=== PATIENT | male | born 1975 | race African-American/Black ===

== ENCOUNTER 2016-09-12 15:13 | Emergency (ER) | payer MEDICAID, OTHER ==
[~2016-09-12] VITALS: Ht 180.3 cm; Wt 63.0 kg
[2016-09-12] MEDS ORDERED: TRAMADOL 50MG TABLET PO ONE (17:45)
[2016-09-12 18:50] VITALS: BP 115/60
== END 2016-09-12 20:20 | disposition home or self-care (01) ==
LOC: ER 16:33
DX: M79.605 Pain in left leg (principal); M79.604 Pain in right leg; M54.2 Cervicalgia; R51 Headache; M25.522 Pain in left elbow; F17.200 Nicotine dependence, unspecified, uncomplicated
CPT/HCPCS: 72040; 72170; 73080; 73552; 99284

== ENCOUNTER 2017-01-16 11:53 | Emergency (ER) | payer MEDICAID ==
[~2017-01-16] VITALS: Ht 177.8 cm; Wt 56.0 kg
[2017-01-16] MEDS ORDERED: KETOROLAC 60MG/2ML VIAL IM ONE (16:30)
[2017-01-16 16:50] VITALS: BP 126/84
== END 2017-01-16 17:13 | disposition home or self-care (01) ==
LOC: ER 11:53
DX: R51 Headache (principal); I10 Essential (primary) hypertension; F17.200 Nicotine dependence, unspecified, uncomplicated
CPT/HCPCS: 70450; 96372; 99284; J1885

== ENCOUNTER 2017-03-18 18:26 | Emergency (ER) | payer MEDICAID ==
[~2017-03-18] VITALS: Ht 177.8 cm; Wt 69.0 kg
[2017-03-19] MEDS ORDERED: KETOROLAC 30MG/ML VIAL IM ONE (03:30)
[2017-03-19] MEDS ORDERED: ONDANSETRON HCL 4MG TABLET PO ONE (03:30)
[2017-03-19 06:41] VITALS: BP 108/78
== END 2017-03-19 07:02 | disposition home or self-care (01) ==
LOC: ER 19:12 → CANRESERV 03-19 19:39 → ENRESERV 03-19 19:39 → CANBEDREQ 03-20 08:45
DX: S43.402A Unspecified sprain of left shoulder joint, initial encounter (principal); W01.0XXA Fall on same level from slipping, tripping and stumbling without subsequent striking against object, initial encounter; Y93.E5 Activity, floor mopping and cleaning; Y92.090 Kitchen in other non-institutional residence as the place of occurrence of the external cause; F17.210 Nicotine dependence, cigarettes, uncomplicated; F10.20 Alcohol dependence, uncomplicated
CPT/HCPCS: 73030; 96372; 99284; J1885; Q0162; Z7610

== ENCOUNTER 2017-04-29 12:18 | Emergency (ER) | payer MEDICAID ==
[~2017-04-29] VITALS: Ht 180.3 cm; Wt 64.0 kg
[2017-04-29] MEDS ORDERED: IBUP-2030 PO (12:37)
[2017-04-29 13:15] VITALS: BP 120/78
[2017-04-29] MEDS ORDERED: IBUPROFEN 400MG TABLET PO ONE (13:15)
[2017-04-29] MEDS ORDERED: ACETAMINOPHEN 325MG TABLET PO ONE (13:15)
== END 2017-04-29 14:25 | disposition home or self-care (01) ==
LOC: ER 12:18
DX: S93.402A Sprain of unspecified ligament of left ankle, initial encounter (principal); S93.602A Unspecified sprain of left foot, initial encounter; Y93.01 Activity, walking, marching and hiking; Y93.89 Activity, other specified; Y92.89 Other specified places as the place of occurrence of the external cause; F17.210 Nicotine dependence, cigarettes, uncomplicated
CPT/HCPCS: 73610; 73630; 99284

== ENCOUNTER 2018-07-02 16:14 | Emergency (ER) | payer MEDICAID ==
[~2018-07-02] VITALS: Ht 177.8 cm; Wt 60.0 kg
[~2018-07-02 16:14] MED LIST: IBUP-2030 PO
[2018-07-02] MEDS ORDERED: IBUPROFEN 600MG TABLET PO ONE (18:45)
[2018-07-02 21:23] VITALS: BP 112/82
== END 2018-07-02 21:32 | disposition home or self-care (01) ==
LOC: ER 16:14
DX: T51.0X1A Toxic effect of ethanol, accidental (unintentional), initial encounter (principal); Y90.8 Blood alcohol level of 240 mg/100 ml or more; S90.121A Contusion of right lesser toe(s) without damage to nail, initial encounter; X58.XXXA Exposure to other specified factors, initial encounter; Y93.89 Activity, other specified; Y92.89 Other specified places as the place of occurrence of the external cause; F17.210 Nicotine dependence, cigarettes, uncomplicated; E11.9 Type 2 diabetes mellitus without complications; Z79.4 Long term (current) use of insulin; Z91.14 Patient's other noncompliance with medication regimen
CPT/HCPCS: 36415; 80320; 82962; 99283; G0480

== ENCOUNTER 2018-07-03 12:35 | Emergency (ER) | payer MEDICAID ==
[~2018-07-03] VITALS: Ht 177.8 cm; Wt 61.3 kg
[2018-07-03] MEDS ORDERED: KETOROLAC 60MG/2ML VIAL IM STA (17:19)
[2018-07-03] MEDS ORDERED: KETOROLAC 60MG/2ML VIAL IM SCH (17:30)
[2018-07-03 18:35] VITALS: BP 122/67
== END 2018-07-03 18:35 | disposition home or self-care (01) ==
LOC: ER 12:35
DX: M77.42 Metatarsalgia, left foot (principal); M77.41 Metatarsalgia, right foot; F17.210 Nicotine dependence, cigarettes, uncomplicated
CPT/HCPCS: 73630; 96372; 99283; J1885

== ENCOUNTER 2018-09-07 04:32 | Emergency (ER) | payer MEDICAID ==
[~2018-09-07] VITALS: Ht 177.8 cm; Wt 68.0 kg
[2018-09-07] MEDS ORDERED: HYDROCODONE/ACETAMINOPHEN 5/325MG TABLET PO ONE (05:15)
[2018-09-07 07:40] VITALS: BP 88/56
== END 2018-09-07 09:30 | disposition home or self-care (01) ==
LOC: ER 04:32
DX: S02.2XXA Fracture of nasal bones, initial encounter for closed fracture (principal); Y08.89XA Assault by other specified means, initial encounter; Y93.89 Activity, other specified; Y92.89 Other specified places as the place of occurrence of the external cause; Y99.8 Other external cause status; I10 Essential (primary) hypertension
CPT/HCPCS: 70450; 70486; 71111; 99284; Z7610

== ENCOUNTER 2019-05-21 16:08 | Emergency (ER) | payer MEDICAID ==
[~2019-05-21] VITALS: Ht 177.8 cm; Wt 73.0 kg
[2019-05-21] MEDS ORDERED: FURO-151 PO (16:19)
[2019-05-21] MEDS ORDERED: IBUPROFEN 600MG TABLET PO ONE (20:45)
[2019-05-21 21:35] VITALS: BP 116/81
== END 2019-05-21 22:28 | disposition home or self-care (01) ==
LOC: ER 16:08
DX: M25.572 Pain in left ankle and joints of left foot (principal); M25.571 Pain in right ankle and joints of right foot; L97.829 Non-pressure chronic ulcer of other part of left lower leg with unspecified severity; R03.0 Elevated blood-pressure reading, without diagnosis of hypertension; G40.909 Epilepsy, unspecified, not intractable, without status epilepticus
CPT/HCPCS: 99283

== ENCOUNTER 2020-05-16 12:20 | Emergency (ER) | payer MEDICAID ==
[~2020-05-16] VITALS: Ht 177.8 cm; Wt 59.0 kg
[~2020-05-16 12:20] MED LIST changes: +FURO-151 PO
[2020-05-16 12:22] VITALS: BP 140/71
[2020-05-16] MEDS ORDERED: FLUORESCEIN SODIUM 1MG/STRIP EACHEYE ONE (12:45)
[2020-05-16] MEDS ORDERED: TETRACAINE 0.5% OPHTH DROPS 4ML EACHEYE ONE (12:45)
[2020-05-16] MEDS ORDERED: DEXT15DR5 LEFTEYE (13:30)
== END 2020-05-16 13:37 | disposition home or self-care (01) ==
LOC: ER 12:30
DX: H11.32 Conjunctival hemorrhage, left eye (principal); W22.8XXA Striking against or struck by other objects, initial encounter; R03.0 Elevated blood-pressure reading, without diagnosis of hypertension; Y93.89 Activity, other specified; Y92.89 Other specified places as the place of occurrence of the external cause; G40.909 Epilepsy, unspecified, not intractable, without status epilepticus; Z79.899 Other long term (current) drug therapy
CPT/HCPCS: 99283

== ENCOUNTER 2021-09-18 09:15 | Emergency (ER) | payer MEDICAID ==
[~2021-09-18] VITALS: Ht 177.8 cm; Wt 70.0 kg
[~2021-09-18 09:15] MED LIST changes: +DEXT15DR5 LEFTEYE
[2021-09-18 09:51] LABS: BASOPHILS % 0.7 % (0.0-2.0); EOSINOPHILS % 0.9 % (0.0-5.0); HEMATOCRIT. 37.8 % (42.0-52.0); HEMOGLOBIN. 12.6 g/dL (14.0-18.0); LYMPHOCYTES % 19.8 % (20.0-50.0); MEAN CORPUSCULAR HEMOGLOBIN 32.6 pg (28.0-32.0); MEAN CORPUSCULAR VOLUME 97.6 fL (80.0-94.0); MEAN PLATELET VOLUME 6.2 fl (7.4-10.4); MONOCYTES % 7.6 % (2.0-8.0); PLATELET 193 x1000/uL (130-400); RED BLOOD CELL COUNT 3.88 mill/uL (4.7-6.1); RED CELL DISTRIBUTION WIDTH 14.9 % (11.6-14.6)
[2021-09-18 10:01] LABS: CHLORIDE 107 mEq/L (98-107)
[2021-09-18 10:05] VITALS: BP 113/72
[2021-09-18 10:10] LABS: ETHANOL BLOOD < 10 mg/dL
== END 2021-09-18 11:39 | disposition home or self-care (01) ==
LOC: ER 09:15
DX: G40.909 Epilepsy, unspecified, not intractable, without status epilepticus (principal)
CPT/HCPCS: 36415; 80053; 80320; 85025; 99283; G0480

== ENCOUNTER 2022-07-18 18:40 | Emergency (ER) | payer MEDICAID ==
[~2022-07-18] VITALS: Ht 180.3 cm; Wt 82.0 kg
[2022-07-18 18:43] VITALS: BP 119/77
[2022-07-18] MEDS ORDERED: LEVETIRACETAM 500MG TABLET PO ONE (19:00)
== END 2022-07-18 20:29 | disposition home or self-care (01) ==
LOC: ER 18:40
DX: R56.9 Unspecified convulsions (principal); S01.512A Laceration without foreign body of oral cavity, initial encounter; X58.XXXA Exposure to other specified factors, initial encounter; Y93.89 Activity, other specified; Y92.89 Other specified places as the place of occurrence of the external cause; Y99.8 Other external cause status
CPT/HCPCS: 82962; 99283

== ENCOUNTER 2023-05-25 08:50 | Emergency (ER) | payer MEDICAID, OTHER ==
[~2023-05-25] VITALS: Ht 177.8 cm; Wt 71.0 kg
[2023-05-25 08:52] VITALS: O2SAT 100
[2023-05-25] MEDS: LEVETIRACETAM 1000MG PREMIX 100 ML IV ONE (09:30)
[2023-05-25] MEDS: SODIUM CHLORIDE 0.9% 1,000 ML IV ONE (09:30)
[2023-05-25 10:32] LABS: BASOPHILS % 0.4 % (0.0-2.0); DIFFERENTIAL COMMENT 0; HEMOGLOBIN. 12.8 g/dL (14.0-18.0); MEAN CORPUSCULAR HEMOGLOBIN 35.5 pg (28.0-32.0); MEAN CORPUSCULAR HGB CONC 33.7 g/dL (31.0-37.0); MEAN CORPUSCULAR VOLUME 105.3 fL (80.0-94.0); MEAN PLATELET VOLUME 6.8 fl (7.4-10.4); MONOCYTES % 8.3 % (2.0-8.0); NEUTROPHILS % 73.3 % (40.0-76.0); PLATELET 153 x1000/uL (130-400); RED BLOOD CELL COUNT 3.61 mill/uL (4.7-6.1); RED CELL DISTRIBUTION WIDTH 13.7 % (11.6-14.6); WHITE BLOOD COUNT 3.5 x1000/uL (4.5-11.0)
[2023-05-25 10:50] LABS: ALANINE AMINOTRANSFERASE 26 IU/L (10-49); ALBUMIN 4.7 g/dL (3.2-4.8); ASPARTATE AMINOTRANSFERASE 47 IU/L (<34); BILIRUBIN TOTAL 1.2 mg/dL (0.1-1.0); CALCIUM 9.6 mg/dL (8.7-10.4); CARBON DIOXIDE 22 mEq/L (21-32); CHLORIDE 106 mEq/L (98-107); ETHANOL BLOOD < 10 mg/dL (<10); GLUCOSE 155 mg/dL (70-105); POTASSIUM 4.3 mEq/L (3.5-5.1); PROTEIN TOTAL 7.2 g/dL (6.0-8.3); SODIUM 142 mEq/L (136-145); UREA NITROGEN BLOOD 9 mg/dL (9-23)
[2023-05-25 11:57] LABS: CLARITY URINE CLEAR (CLEAR); COLOR URINE YELLOW (YELLOW); GLUCOSE URINE NEGATIVE (NEGATIVE); KETONES URINE NEGATIVE (NEGATIVE); LEUKOCYTE ESTERASE URINE NEGATIVE (NEGATIVE); NITRITE URINE NEGATIVE (NEGATIVE); OCCULT BLOOD URINE TRACE (NEGATIVE); PH URINE 6.5 (4.5-8.0); PROTEIN URINE 1+ (NEGATIVE); SPECIFIC GRAVITY URINE 1.015 (1.005-1.030); UROBILINOGEN URINE 0.2 E.U./dL (0.2-1.0)
[2023-05-25 12:16] LABS: RBC URINE 0-2 /hpf (0-2); SQUAMOUS EPITHELIAL CELL URINE RARE /lpf (RARE/1+); WBC URINE 0-2 /hpf (0-2)
[2023-05-25 12:17] LABS: BACTERIA URINE TRACE
[2023-05-25 12:44] LABS: *AMPHETAMINES SCREEN URINE NEGATIVE (NEGATIVE); *BARBITURATES SCREEN URINE NEGATIVE (NEGATIVE); *BENZODIAZEPINES SCREEN URINE PRESUMPTIVE POSITIVE (NEGATIVE); *COCAINE SCREEN URINE NEGATIVE (NEGATIVE); CANNABINOID URINE SCREEN NEGATIVE (NEGATIVE); ECSTASY MDMA SCREEN URINE NEGATIVE (NEGATIVE); METHADONE URINE SCREEN Neg (NEGATIVE); OPIATES URINE SCREEN NEGATIVE (NEGATIVE); PHENCYCLIDINE URINE SCREEN NEGATIVE (NEGATIVE)
[2023-05-25 13:30] VITALS: BP 133/89; PULSE 83; RESP 18; TEMP 97.8
== END 2023-05-25 13:30 | disposition left against medical advice (07) ==
LOC: ER 08:50 → CANBEDREQ 05-26 09:12
DX: G40.909 Epilepsy, unspecified, not intractable, without status epilepticus (principal); I63.9 Cerebral infarction, unspecified
CPT/HCPCS: 80053; 80305; 81003; 80320; 85025; 36415; 70450; 96365; 99285; J1953; J7030; Z7610 ×2; G0480

== ENCOUNTER 2023-07-05 20:46 | Emergency (ER) | payer OTHER ==
[~2023-07-05] VITALS: Ht 170.2 cm; Wt 77.0 kg
[2023-07-05 20:55] VITALS: TEMP 98; O2SAT 97
[2023-07-05] MEDS: SODIUM CHLORIDE 0.9% 1,000 ML IV ONE (21:30)
[2023-07-05 22:45] LABS: BASOPHILS % 0.7 % (0.0-2.0); DIFFERENTIAL COMMENT 0; EOSINOPHILS % 1.5 % (0.0-5.0); HEMATOCRIT. 39.2 % (42.0-52.0); HEMOGLOBIN. 13.4 g/dL (14.0-18.0); LYMPHOCYTES % 44.3 % (20.0-50.0); MEAN CORPUSCULAR HEMOGLOBIN 35.5 pg (28.0-32.0); MEAN CORPUSCULAR HGB CONC 34.3 g/dL (31.0-37.0); MEAN CORPUSCULAR VOLUME 103.7 fL (80.0-94.0); MEAN PLATELET VOLUME 6.5 fl (7.4-10.4); MONOCYTES % 11.7 % (2.0-8.0); NEUTROPHILS % 41.8 % (40.0-76.0); PLATELET 221 x1000/uL (130-400); RED BLOOD CELL COUNT 3.78 mill/uL (4.7-6.1); RED CELL DISTRIBUTION WIDTH 14.1 % (11.6-14.6); WHITE BLOOD COUNT 3.7 x1000/uL (4.5-11.0)
[2023-07-05 22:59] LABS: *AMPHETAMINES SCREEN URINE NEGATIVE (NEGATIVE); *BARBITURATES SCREEN URINE NEGATIVE (NEGATIVE); *BENZODIAZEPINES SCREEN URINE NEGATIVE (NEGATIVE); *COCAINE SCREEN URINE NEGATIVE (NEGATIVE); CANNABINOID URINE SCREEN NEGATIVE (NEGATIVE); ECSTASY MDMA SCREEN URINE NEGATIVE (NEGATIVE); METHADONE URINE SCREEN Neg (NEGATIVE); OPIATES URINE SCREEN NEGATIVE (NEGATIVE); PHENCYCLIDINE URINE SCREEN NEGATIVE (NEGATIVE)
[2023-07-05 23:06] LABS: ALANINE AMINOTRANSFERASE 25 IU/L (10-49); ALBUMIN 5.4 g/dL (3.2-4.8); ASPARTATE AMINOTRANSFERASE 37 IU/L (<34); BILIRUBIN TOTAL 0.6 mg/dL (0.1-1.0); CALCIUM 9.1 mg/dL (8.7-10.4); CARBON DIOXIDE 31 mEq/L (21-32); CHLORIDE 114 mEq/L (98-107); CREATININE 0.8 mg/dL (0.6-1.3); GLUCOSE 90 mg/dL (70-105); POTASSIUM 3.8 mEq/L (3.5-5.1); PROTEIN TOTAL 8.7 g/dL (6.0-8.3); SODIUM 151 mEq/L (136-145); UREA NITROGEN BLOOD 7 mg/dL (9-23)
[2023-07-05 23:11] LABS: ETHANOL BLOOD 428 mg/dL (<10)
[2023-07-05] MEDS: LORAZEPAM 2MG/ML INJ IV ONE (23:12)
[2023-07-06 09:25] VITALS: BP 128/82; PULSE 68; RESP 16
== END 2023-07-06 10:00 | disposition still patient (30) ==
LOC: ER 20:46
DX: R41.82 Altered mental status, unspecified (principal); F10.129 Alcohol abuse with intoxication, unspecified; R56.9 Unspecified convulsions; Y90.8 Blood alcohol level of 240 mg/100 ml or more
CPT/HCPCS: 80053; 80305; 80320; 85025; 36415; 96361; 96374; 99283; J2060; J7030; G0480

== ENCOUNTER 2024-01-05 00:19 | Emergency (ER) | payer OTHER ==
[~2024-01-05] VITALS: Ht 167.6 cm; Wt 70.0 kg
[2024-01-05 00:22] VITALS: O2SAT 97
[2024-01-05] MEDS ORDERED: LEVETIRACETAM 500MG PREMIX 100 ML IV ONE (00:45)
[2024-01-05] MEDS: LEVETIRACETAM 1000MG PREMIX 100 ML IV NR (00:59)
[2024-01-05] MEDS ORDERED: KEPP500 MT (03:14)
[2024-01-05 04:05] VITALS: BP 138/75; PULSE 79; RESP 16; TEMP 36.78072; O2SAT 99
== END 2024-01-05 04:06 | disposition home or self-care (01) ==
LOC: ER 00:19
DX: R56.9 Unspecified convulsions (principal); F17.200 Nicotine dependence, unspecified, uncomplicated; Z79.899 Other long term (current) drug therapy
CPT/HCPCS: 96365; 99284; J1953; Z7610

== ENCOUNTER 2024-08-04 21:13 | Emergency (ER) | payer OTHER ==
[~2024-08-04] VITALS: Ht 172.7 cm; Wt 80.0 kg
[~2024-08-04 21:13] MED LIST changes: +KEPP500 MT
[2024-08-04 21:24] VITALS: O2SAT 100
[2024-08-04 22:00] LABS: HEMATOCRIT. 36.5 % (42.0-52.0); HEMOGLOBIN. 12.5 g/dL (14.0-18.0); MEAN CORPUSCULAR HEMOGLOBIN 34.7 pg (28.0-32.0); MEAN CORPUSCULAR HGB CONC 34.3 g/dL (31.0-37.0); MEAN PLATELET VOLUME 6.1 fl (7.4-10.4); PLATELET 139 x1000/uL (130-400); RED BLOOD CELL COUNT 3.61 mill/uL (4.7-6.1); WHITE BLOOD COUNT 2.6 x1000/uL (4.5-11.0)
[2024-08-04 22:02] LABS: DIFFERENTIAL COMMENT 1
[2024-08-04 22:08] LABS: CHLORIDE 110 mEq/L (98-107); POTASSIUM 3.9 mEq/L (3.5-5.1); SODIUM 148 mEq/L (136-145)
[2024-08-04 22:09] LABS: CALCIUM 9.5 mg/dL (8.7-10.4); CARBON DIOXIDE 29 mEq/L (21-32)
[2024-08-04 22:12] LABS: PROTHROMBIN TIME 10.8 sec (9.6-11.0)
[2024-08-04 22:14] LABS: CREATININE 0.8 mg/dL (0.6-1.3); GLUCOSE 94 mg/dL (70-105); UREA NITROGEN BLOOD 10 mg/dL (9-23)
[2024-08-04 22:16] LABS: TROPONIN I HIGH SENSITIVITY < 4 ng/L (3.0-53)
[2024-08-04 22:20] LABS: PLATELET ESTIMATE NORMAL
[2024-08-04 22:37] LABS: ETHANOL BLOOD 427 mg/dL (<10)
[2024-08-04] MEDS: SODIUM CHLORIDE 0.9% 1,000 ML IV ONE (22:42)
[2024-08-04] MEDS ORDERED: LEVETIRACETAM 1,000MG in NACL 100ML PREMIX IV SCH (23:00)
[2024-08-05] MEDS ORDERED: IBUP-2029 MT (00:23)
[2024-08-05] MEDS ORDERED: KEPP500 MT (00:23)
[2024-08-05] MEDS: LEVETIRACETAM 1000MG PREMIX 100 ML IV NR (01:18)
[2024-08-05 02:53] VITALS: BP 125/71; PULSE 78; RESP 13; TEMP 36.7; O2SAT 100
== END 2024-08-05 02:54 | disposition home or self-care (01) ==
LOC: ER 21:13
DX: R55 Syncope and collapse (principal); M79.10 Myalgia, unspecified site; Z79.899 Other long term (current) drug therapy
CPT/HCPCS: 80048; 80320; 83880; 85025; 85610; 84484; 36415; 71045; 70450; 93005; 99285; 96365; J7030; J1953; G0480

== ENCOUNTER 2024-09-16 14:57 | Emergency (ER) | payer MEDICARE, OTHER ==
[~2024-09-16] VITALS: Ht 170.2 cm; Wt 77.0 kg
[~2024-09-16 14:57] MED LIST changes: +IBUP-2029 MT
[2024-09-16 15:02] VITALS: O2SAT 95
[2024-09-16 15:36] LABS: DIFFERENTIAL COMMENT 1; HEMOGLOBIN. 11.7 g/dL (14.0-18.0); MEAN CORPUSCULAR HEMOGLOBIN 35.1 pg (28.0-32.0); MEAN CORPUSCULAR HGB CONC 34.3 g/dL (31.0-37.0); MEAN CORPUSCULAR VOLUME 102.3 fL (80.0-94.0); MEAN PLATELET VOLUME 6.4 fl (7.4-10.4); PLATELET 185 x1000/uL (130-400); RED BLOOD CELL COUNT 3.33 mill/uL (4.7-6.1); RED CELL DISTRIBUTION WIDTH 14.7 % (11.6-14.6); WHITE BLOOD COUNT 2.8 x1000/uL (4.5-11.0)
[2024-09-16 15:46] LABS: CHLORIDE 107 mEq/L (98-107); SODIUM 147 mEq/L (136-145)
[2024-09-16 15:47] LABS: CARBON DIOXIDE 29 mEq/L (21-32); PROTHROMBIN TIME 10.9 sec (9.6-11.0)
[2024-09-16 15:48] LABS: CALCIUM 9.7 mg/dL (8.7-10.4)
[2024-09-16 15:49] LABS: CLARITY URINE CLEAR (CLEAR); COLOR URINE YELLOW (YELLOW); GLUCOSE URINE NEGATIVE (NEGATIVE); KETONES URINE NEGATIVE (NEGATIVE); LEUKOCYTE ESTERASE URINE NEGATIVE (NEGATIVE); NITRITE URINE NEGATIVE (NEGATIVE); OCCULT BLOOD URINE NEGATIVE (NEGATIVE); PROTEIN URINE NEGATIVE (NEGATIVE); SPECIFIC GRAVITY URINE 1.004 (1.005-1.030); UROBILINOGEN URINE 0.2 E.U./dL (0.2-1.0)
[2024-09-16 15:52] LABS: CREATININE 0.9 mg/dL (0.6-1.3)
[2024-09-16 15:53] LABS: GLUCOSE 84 mg/dL (70-105); UREA NITROGEN BLOOD 10 mg/dL (9-23)
[2024-09-16 16:02] LABS: ETHANOL BLOOD 397 mg/dL (<10)
[2024-09-16 16:04] LABS: TROPONIN I HIGH SENSITIVITY < 4 ng/L (3.0-53)
[2024-09-16 16:37] LABS: ANISOCYTOSIS 1+; PLATELET ESTIMATE NORMAL
[2024-09-16 19:39] VITALS: BP 123/79; PULSE 84; RESP 14; TEMP 37; O2SAT 95
== END 2024-09-16 19:57 | disposition home or self-care (01) ==
LOC: ER 14:57
DX: F10.129 Alcohol abuse with intoxication, unspecified (principal); Z79.899 Other long term (current) drug therapy; R41.82 Altered mental status, unspecified; R07.89 Other chest pain; Y90.8 Blood alcohol level of 240 mg/100 ml or more
CPT/HCPCS: 36415; 71045; 73130; 80048; 80320; 81003; 84484; 85025; 93005; 99285; G0480